=== PATIENT | male | born 1950 | race Caucasian/White ===

== ENCOUNTER → 2018-12-16 07:17 | Outpatient (CLI) | payer MEDICARE, SELFPAY ==
--- NOTE | 2018-12-16 07:44 | CI_ITS ---
Cerebrovascular Exam Indications: 433.10 Occlusion/stenosis of carotid artery without cerebral infarction. IMPRESSIONS 1. The bilateral vertebral arteries are patent with normal antegrade flow. 2. Study suggests 20-49% stenosis involving the right internal carotid artery. 3. Study suggests 50-69% stenosis involving the left internal carotid artery. History: Risk factors: Current tobacco use. Hypertension. Carotid duplex study. Complete study and Doppler flow study including spectral analysis, color and belle scale imaging. Height: Height: 175.3cm. Height: 69in. Weight: Weight: 103.9kg. Weight: 228.5lb. Body mass index: BMI: 33.8kg/m^2. Body surface area: BSA: 2.28m^2. Location: Vascular laboratory. Patient status: Outpatient. Tables: Arterial flow: + +--------+--------+ Location V sys V ed + +--------+--------+ Right CCA - proximal 59.4cm/s 18.2cm/s + +--------+--------+ Right CCA - distal 51.6cm/s 15.7cm/s + +--------+--------+ Right ECA 49.1cm/s -------- + +--------+--------+ Right ICA - proximal 87.4cm/s 31.9cm/s + +--------+--------+ Right ICA - mid 125cm/s 41.9cm/s + +--------+--------+ Right ICA - distal 108cm/s 37cm/s + +--------+--------+ Right vertebral 52.1cm/s -------- + +--------+--------+ Left CCA - proximal 119cm/s 31.4cm/s + +--------+--------+ Left CCA - distal 84.2cm/s 24.5cm/s + +--------+--------+ Left ECA 137cm/s -------- + +--------+--------+ Left ICA - proximal 113cm/s 42.1cm/s + +--------+--------+ Left ICA - mid 140cm/s 47.5cm/s + +--------+--------+ Left ICA - distal 124cm/s 36.3cm/s + +--------+--------+ Left vertebral 51cm/s -------- + +--------+--------+ Velocity ratios: + + + + + + Right, V sys Right, V ed Left, V sys Left, V ed + + + + + + Max ICA/dist CCA 2.42 2.67 1.66 1.94 + + + + + + (Report amended ) Electronically signed by: Cyrus Almazan [id number]
--- NOTE | 2018-12-16 08:00 | CT_ITS ---
EXAM: CT LUNG LOW DOSE WO CONTRAST TECHNIQUE: The exam was performed on a GE Light Speed [address] scanner using 3.0 mGy CTDI. A low dose helical CT CHEST was performed on a multi-detector scanner. All CT scans at this facility use one or more dose reduction techniques, viz.: automated exposure control, ma/kV adjustment per patient size (including targeted exams where dose is matched to indication, i.e. head) or iterative reconstruction technique. The LDCT was performed in a facility that meets the criteria for the screening program. Data regarding this exam was submitted to ACR which is an approved registry. The order for this exam indicates that it came as a result of a lung cancer screening counseling shard decision-making visit that included all the elements required of such a visit including smoking cessation. The radiologist interpreting this exam meets the [facility] criteria for the LDCT lung cancer screening program. The exam is reported using the Lung-RADS classification scale and reported to the ACR registry. NOTE: This study was performed for the specific purposes of lung cancer screening and is not an alternative to diagnostic chest CT. RADIATION DOSE: CTDI vol(CT dose Index-volume) = 2.9mGy DLP (Dose Length Product) = 115.03 mGy-cm COMPARISON: CTA chest 03/25/2016 HISTORY: 1-2 pack per day 52 years . Pain currently smoking. Asymptomatic. FINDINGS: NODULE SURVEY No suspicious lung nodules or masses evident. Benign granulomas a most likely benign findings.... Follow-up in one year would be adequate for screening There are benign calcified granulomas the right lung:.. Note 2 of them measuring up to 3.5 mm size. These are not of concern. Tiny barely evident less than 3 mm nodule periphery the right upper lobe on coronal image 43 axial image 41.- Nonspecific nodule.Lung RADS Category: 2 ...... possibly some early calcification given its density for size. One year follow-up adequate Other also some small old less than 4 mm mm calcified granulomas at the left lung, scattered throughout left lower lobe . There is minimal linear scarring seen at the anterior aspect the lingula accounting for features here. ------ LUNGS Mild centrilobular emphysematous changes No pleural density. No pleural lesions. Airways are upper to slightly thickened centrally and towards infrahilar regions MEDIASTINUM/KOBI Calcified hilar nodes on right. No hilar nor mediastinal mass nor significant adenopathy. Small calcified nodes precarinal region not of concern. Heart normal size but with dense at the right calcification LAD and minimal calcification circumflex and right coronary. Minimal Bilateral gynecomastia noted Osseous structures intact. No lesions Generous developing marginal osteophytes at the lower T-spine projected to the right. . Minimal Bilateral gynecomastia noted. IMPRESSION: 1. No suspicious lung nodule or mass. Mild emphysematous changes. 2. Numerous Small benign calcified granuloma bilaterally. One or 2 tiny nonspecific nodules measure roughly 3 mm. These Not of significant concern and most likely benign. ....... Lung RADS Category: 2...... Follow-up in one year recommended 2. Other findings ... coronary artery calcification/disease RECOMMENDATIONS: 12 monthd LDCT follow-up
== END ==
PROVIDERS: PCP Family Medicine; Visit Provider Family Medicine
DX: Z12.2 Encounter for screening for malignant neoplasm of respiratory organs (principal); Z87.891 Personal history of nicotine dependence; I65.23 Occlusion and stenosis of bilateral carotid arteries
CPT/HCPCS: 93880

== ENCOUNTER → 2020-05-28 07:44 | Outpatient (CLI) | payer MEDICARE, SELFPAY ==
--- NOTE | 2020-05-28 | CA_ITS ---
APPROVED REPORT EXAM: Comprehensive 2D, Doppler, and color-flow Echocardiogram Verse Writer: Daria Owusu CRT Ht: 5 ft 9 in Wt: 230lbs BSA: 2.19 BP: 120/70 mmHg Indications: Shortness of Breath, Diabetes, Obesity, Peripheral Edema, Hypertension/HDD, stent, smoker, TDE due to lung interference and poor windows, stents M-Mode Dimensions RVDd 1.78 cm (0.9-2.6) LVDd 5.27 cm (3.5-5.7) LVDs 3.78 cm (3.5-5.7) IVSd 1.10 cm (0.6-1.1) PWd 0.81 cm (0.6-1.1) EF (Teich) 54.20% FS 28.30% EDV (Teich) 133.60 mL ESV (Teich) 61.20 mL LV Diastology E/A Ratio 0.83 Aortic Valve LVOT Max 171.00 (70-110 cm/s) LVOT VTI 29.65 cm Mitral Valve MV A Velocity 87.00 (40-130 cm/s) Left Ventricle Technically difficult study because of the patient factors and poor acoustic windows. Left atrium is mildly enlarged, left ventricle is normal size, mild concentric left ventricular hypertrophy, visually estimated ejection fraction 55% with no regional wall motion abnormality, grade 1 diastolic dysfunction seen without tissue Doppler evidence of raise left atrial pressure. Right Ventricle Right atrium and right ventricle are normal size and contractility. Aortic Valve Aortic valve is not well visualized, leaflet appears to be thickened, there is increased velocity seen in the left ventricular outflow tract, there is aortic stenosis present which is difficult to quantify with this study, a transesophageal echocardiogram is recommended. Mitral Valve Mitral valve leaflets are minimally thickened, there is mild mitral regurgitation. Tricuspid Valve Tricuspid valve is grossly normal, there is mild tricuspid regurgitation, tricuspid regurgitation jet velocity is inadequate for calculation of the right ventricular systolic pressure. Mild tricuspid valve prolapse. Pulmonic Valve Pulmonic valve is poorly visualized. Great Vessels Aortic root is normal size. Pericardium No significant pericardial effusion noted Other Information Technically limited study due to body habitus, poor endocardial definition. Conclusion 1. Normal left ventricular size, mild concentric left ventricular hypertrophy, visually estimated ejection fraction 55% with no regional wall motion abnormality, grade 1 diastolic dysfunction seen without tissue Doppler evidence of raise left atrial pressure. 2. Thickened and calcified aortic valve, the degree of aortic stenosis cannot be ascertained from this study, a transesophageal echocardiogram is recommended. 3. Mild mitral and tricuspid regurgitation. 4. No significant pericardial effusion noted. Electronically signed by : Wilmer Quinteros, 05/29/2020 06:06:49
--- NOTE | 2020-05-28 07:52 | CT_ITS ---
PROCEDURE: CT LUNG SCREENING CLINICAL INDICATION: H/O NICOTINE DEPENDENCE Current smoker 82.5 pack year smoking history COMPARISON: CT LUNGSCREEN CT lung screening from 12/16/2018 TECHNIQUE: The exam was performed on a GE Light Speed [address] scanner using 2.90 mGy CTDI. A low dose helical CT CHEST was performed on a multi-detector scanner. All CT scans at the facility use one or more dose reduction, viz: automated exposure control, ma/kV adjustment per patient size (including targeted exams where dose is matched to indication, i.e. head), or iterative reconstruction technique. The LDCT was performed in a facility that meets the criteria for the screening program. Data regarding this exam was submitted to ACR which is an approved registry. The order for this exam indicates that it came as a result of a lung cancer screening counseling shard decision-making visit that included all the elements required of such a visit including smoking cessation. The radiologist interpreting this exam meets the CMS criteria for the LDCT lung cancer screening program. The exam is reported using the Lung-RADS classification scale and reported to the ACR registry. NOTE: This study was performed for the specific purposes of lung cancer screening and is not an alternative to diagnostic chest CT. RADIATION DOSE: CTDI vol(CT dose Index-volume) = 2.90mG DLP (Dose Length Product) = 110.72 mGcm Lung Rads Category: FINDINGS: Changes of COPD. Scattered tiny calcified and noncalcified nodules are present as before. No suspicious nodules are evident. There is mild bronchial thickening. OTHER FINDINGS: Coronary artery calcifications IMPRESSION: Lung rads category 2 benign. Recommend annual LD CT Dictated by: Cyrus Almazan MD 06/04/2020 15:01 Cyrus Almazan MD in [place] 06/04/2020 15:01
== END ==
PROVIDERS: PCP Family Medicine; Visit Provider Family Medicine
DX: I35.1 Nonrheumatic aortic (valve) insufficiency (principal); Z87.891 Personal history of nicotine dependence
CPT/HCPCS: 93306

== ENCOUNTER → 2021-01-16 14:21 | Outpatient (CLI) | payer MEDICARE, SELFPAY ==
--- NOTE | 2021-01-16 14:24 | CA_ITS ---
APPROVED REPORT Toll Mechanic: Marisabel Vogel RVT Laterality: Bilateral Study Quality: Good Indications: Carotid stenosis Risk Factors Hypertension: Hyperlipidemia Diabetes Smoking Doppler Spectral Velocity Analysis ECA (R) 115.70/16.30 cm/s ECA (L) 165.70/24.60 cm/s dICA (R) 126.80/38.60 cm/s dICA (L) 94.20/30.80 cm/s Alis (R) 111.40/34.30 cm/s Alis (L) 108.00/32.60 cm/s pICA (R) 86.50/25.70 cm/s pICA (L) 152.50/49.70 cm/s dCCA (R) 39.40/12.00 cm/s dCCA (L) 77.10/12.90 cm/s pCCA (R) 49.70/13.70 cm/s pCCA (L) 93.40/14.60 cm/s Vert (R) 65.10/13.70 cm/s Vert (L) 43.00/12.20 cm/s ICA/CCA 3.22 ICA/CCA 1.98 Findings Study suggests 20-49% stenosis of the right internal cartoid artery. Study suggests 50-69% stenosis of the left internal cartoid artery. Antegrade flow seen bilateral vertebral arteries. Conclusion Study suggests 20-49% stenosis of the right internal cartoid artery. Study suggests 50-69% stenosis of the left internal cartoid artery. Antegrade flow seen bilateral vertebral arteries. Electronically signed by : Cyrus Almazan MD 01/17/2021 16:57:08
== END ==
PROVIDERS: PCP Family Medicine; Visit Provider Family Medicine
DX: I65.23 Occlusion and stenosis of bilateral carotid arteries (principal)
CPT/HCPCS: 93880

== ENCOUNTER 2021-10-23 15:07 | Emergency (ER) | payer MEDICARE, SELFPAY ==
[2021-10-23 15:40] VITALS: BP 169/92; PULSE 102; RESP 20; TEMP 36.9; O2SAT 97; BMI 23.6
[2021-10-23 18:49] VITALS: BP 0/0; PULSE 0; RESP 0; TEMP -17.7; TEMP 0; O2SAT 0
== END 2021-10-23 18:51 | disposition left against medical advice (07) ==
LOC: ER 17:24
PROVIDERS: Emergency Provider Emergency Medicine; PCP Family Medicine
DX: E13.42 Other specified diabetes mellitus with diabetic polyneuropathy (principal); M79.605 Pain in left leg; I10 Essential (primary) hypertension; F17.210 Nicotine dependence, cigarettes, uncomplicated; Z86.711 Personal history of pulmonary embolism
CPT/HCPCS: G0463; 99211

== ENCOUNTER 2021-10-24 11:45 | Emergency (ER) | payer MEDICARE, SELFPAY ==
[2021-10-24 11:49] VITALS: BP 176/98; PULSE 69; RESP 18; TEMP 36.7; O2SAT 95; BMI 33.0
[2021-10-24 12:27] LABS: Basophils # 0.1 K/mm3 (0-0.2); Eosinophils % 0.7 % (0.1-12.0); Hematocrit 47.7 % (42.0-52.0); Hemoglobin 15.4 g/dL (14.1-18.0); Lymphocytes # 1.5 K/mm3 (0.7-4.5); Lymphocytes % 28.9 % (10-50); Mean Corpuscular HGB Conc 32.4 g/dL (31.8-35.4); Mean Corpuscular Volume 98.9 fl (80-94); Mean Platelet Volume 9.1 fl (7.4-10.4); Monocytes # 0.4 K/mm3 (0.1-1.0); Monocytes % 6.6 % (1.7-9.3); Neutrophils # 3.4 K/mm3 (1.8-7.8); Neutrophils % 62.6 % (37.0-80.0); Platelet Count 204 K/mm3 (142-424); Red Blood Count 4.83 M/mm3 (4.60-6.20); Red Cell Distribution Width 13.6 % (11.5-17.5); White Blood Count 5.3 K/mm3 (4.8-10.8)
[2021-10-24 12:31] LABS: Sodium 136 mmol/L (136-145)
[2021-10-24 12:33] LABS: Alanine Aminotransferase 38 U/L (12-78); Albumin Level 4.1 g/dl (3.5-5.0); Albumin/Globulin Ratio 1.4 (1.1-1.8); Alkaline Phosphatase 85 U/L (38-126); Anion Gap 9.2 mEq/L (5-15); Aspartate Amino Transferase 35 U/L (17-59); Bilirubin,Total 0.4 mg/dl (0.2-1.3); Blood Urea Nitrogen 14 mg/dl (9-20); Calcium 8.9 mg/dl (8.4-10.2); Carbon Dioxide 31 mmol/L (22.0-30.0); Chloride 100 mmol/L (98-107); Creatinine Clearance Estimated 95 mL/min (50-200); Estimated Glomerular Filt Rate 95 ml/min (>60); GFR (African American) 115 ML/MIN (>60); Globulin 2.9 g/dL (1.3-3.2); Glucose 211 mg/dl (74-100); Potassium 4.2 mmoL/L (3.5-5.1)
[2021-10-24 12:34] LABS: INR 2.25 (0.9-1.1); Prothrombin Time 23.9 seconds (10.1-12.5)
[2021-10-24 13:00] VITALS: BP 132/65; PULSE 92; RESP 16; O2SAT 94
--- NOTE | 2021-10-24 13:18 | HMH.EDGENADL ---
ED Disposition Clinical Impression: Peripheral edema Diabetic neuropathy Qualifiers: Diabetes mellitus type: other specified (including RENÉE) Diabetes mellitus complication detail: diabetic polyneuropathy Qualified Code(s): E13.42 - Other specified diabetes mellitus with diabetic polyneuropathy Disposition: Home, Self-Care Condition on Discharge: Good Instructions: DI for Diabetic Neuropathy, DI for Peripheral Edema -- Bilateral Additional Instructions: Take Lasix as prescribed. Elevate your legs when possible. Continue taking gabapentin. Follow-up with Dr. Dotson in the office, you have been given an appointment sooner than your previously scheduled follow-up if you wish to be seen sooner than scheduled. Prescriptions: Furosemide [Lasix 20mg tab] 20 mg PO DAILY #7 tab Transmission Status: Received by [facility] Referrals: Juvenal Dotson MD [Primary Care Provider] - - Critical Care Critical Care Time: No Attestation: On 10/24/21, the high probability of a clinically significant, sudden or life threatening deterioration of the following system(s) required my full and direct attention, intervention and personal management. The time I documented below is in addition to time spent performing reported procedures but includes the following listed in this critical care notation. Medical Decision Making - Joe Inquiry Pt receiving controlled substance: No Vital Signs: 10/24/21 11:49 10/24/21 13:00 10/24/21 13:30 Temperature 98.0 F Temperature Source Oral Pulse Rate 92 H 98 H Pulse Rate [Right Radial] 69 Respiratory Rate 18 16 Blood Pressure 132/65 Blood Pressure [Right Arm] 176/98 H Blood Pressure Mean 87 Blood Pressure Mean [Right Arm] 124 Blood Pressure Source [Right Arm] Automatic Cuff Blood Pressure Position [Right Arm] Sitting 02 Sat by Pulse Oximetry 95 94 L 95 Oxygen Delivery Method Room Air 10/24/21 14:44 Temperature Temperature Source Pulse Rate 90 Pulse Rate [Right Radial] Respiratory Rate 16 Blood Pressure 151/79 H Blood Pressure [Right Arm] Blood Pressure Mean 125 Blood Pressure Mean [Right Arm] Blood Pressure Source [Right Arm] Blood Pressure Position [Right Arm] 02 Sat by Pulse Oximetry 95 Oxygen Delivery Method - Lab Data Lab Results 10/24/21 12:14: WBC 5.3, RBC 4.83, Hgb 15.4, Hct 47.7, MCV 98.9 H, MCH 32.0 H, MCHC 32.4, RDW 13.6, Plt Count 204, MPV 9.1, Neut % (Auto) 62.6, Lymph % (Auto) 28.9, [place] % (Auto) 6.6, Eos % (Auto) 0.7, Baso % (Auto) 1.0, Neut # (Auto) 3.4, Lymph # (Auto) 1.5, [place] # (Auto) 0.4, Eos # (Auto) 0.0, Baso # (Auto) 0.1 10/24/21 12:14: PT 23.9 H, INR 2.25 H 10/24/21 12:14: Sodium 136, Potassium 4.2, Chloride 100, Carbon Dioxide 31 H, Anion Gap 9.2, BUN 14, Creatinine 0.80, Estimated Creat Clear 95, Estimated GFR 95, Est GFR ( Amer) 115, Glucose 211 H, Calcium 8.9, Total Bilirubin 0.4, AST 35, ALT 38, Alkaline Phosphatase 85, Total Protein 7.0, Albumin 4.1, Globulin 2.9, Albumin/Globulin Ratio 1.4 Result diagrams: 10/24/21 12:14 10/24/21 12:14 Orders (Tests/Meds): ED MEDICATIONS Discontinued Medications Generic Name Dose Route Start Last Admin Trade Name Freq PRN Reason Stop Dose Admin Furosemide 20 mg 10/24/21 14:39 10/24/21 14:41 Furosemide 40mg/4ml Vial IV 10/24/21 14:40 20 mg ONCE ONE Administration - US Data US Images: Lower Extremity Findings Narrative: As per [facility] procedure, venous doppler report received from vascular neurologist: Negative for DVT bilaterally - Physician Consults Physician Consulted: Mauri Time: 14:30 Reason -: Pt condition Comment/Response: Start Lasix 20 mg/day. Office will call to get him a sooner appointment. However, patient states that he cannot see Dr. Dotson until after June 13 because he does not get a Social Security check and movement. I advised him to arrange the follow-up appointment with Dr. Dotson's office himself.
--- NOTE | 2021-10-24 13:26 | CA_ITS ---
FINAL REPORT CLINICAL HISTORY: .EDEMA MICHELLE, LT FOOT PAIN,HX DVT,HX PE'S,PT ON COUMADIN FINDINGS: Color Doppler, duplex Doppler and compression sonography of the bilateral lower extremities was performed. There is no evidence of deep venous thrombosis from the level of the groin to the calf. The deep veins are patent and compressible. IMPRESSION: No evidence of deep venous thrombosis bilateral lower extremities. Reviewed, Interpreted and Dictated by Fran Cotton III, MD Transcribed by Lela Suresh Authenticated by Fran Cotton III, MD on 10/24/2021 03:21:16 PM [facility]
--- NOTE | 2021-10-24 13:27 | PC.NURSE ---
Called echo and let them know about the doppler orders. Latanya advised they would be down as soon as they were available. They had multiple patient's upstairs at the moment.
--- NOTE | 2021-10-24 13:28 | PC.NURSE ---
Notified pt and updated him on POC
[2021-10-24 13:30] VITALS: PULSE 98; O2SAT 95
--- NOTE | 2021-10-24 13:48 | PC.NURSE ---
vascular at bedside
[2021-10-24 14:44] VITALS: BP 151/79; PULSE 90; RESP 16; O2SAT 95
[2021-10-24 15:31] VITALS: BP 142/70; PULSE 70; RESP 16; TEMP 36.9; O2SAT 98
== END 2021-10-24 15:32 | disposition home or self-care (01) ==
PROVIDERS: Emergency Provider Emergency Medicine; PCP Family Medicine
DX: E13.42 Other specified diabetes mellitus with diabetic polyneuropathy (principal); M79.671 Pain in right foot; M79.672 Pain in left foot; Z86.718 Personal history of other venous thrombosis and embolism; Z79.01 Long term (current) use of anticoagulants; I10 Essential (primary) hypertension; F17.210 Nicotine dependence, cigarettes, uncomplicated
CPT/HCPCS: 80053; 85025; 85610; 93970; 96374; 99283

== ENCOUNTER 2021-12-08 12:18 | Emergency (ER) | payer MEDICARE, SELFPAY ==
[2021-12-08 12:19] VITALS: BP 158/94; PULSE 113; RESP 18; TEMP 36.6; O2SAT 94; BMI 33.0
[2021-12-08 12:29] VITALS: BP 158/94; PULSE 115; O2SAT 94
[2021-12-08 12:30] VITALS: BP 153/109; PULSE 110; O2SAT 92
[2021-12-08 13:00] VITALS: BP 135/92; PULSE 110; O2SAT 91
--- NOTE | 2021-12-08 13:00 | XR_ITS ---
FINAL REPORT CLINICAL HISTORY: RLL pain-- also having a doppler FINDINGS: There is no acute fracture or dislocation. There are degenerative changes at the right knee and right ankle. There is no soft tissue abnormality. IMPRESSION: No acute fracture Reviewed, Interpreted and Dictated by Fran Cotton III, MD Transcribed by OLMAN Holden Authenticated by Fran Cotton III, MD on 12/08/2021 02:09:32 PM [facility]
--- NOTE | 2021-12-08 13:04 | HMH.EDEXTP ---
ED Disposition Clinical Impression: Venous insufficiency of both lower extremities Disposition: Home, Self-Care Condition on Discharge: Good Instructions: Chronic Venous Insufficiency Additional Instructions: Please keep your appointment with your Primary Care Physician in 2-3 days. Please elevate your legs at night. May also buy compression stockings to help with fluid in your lower extremities. Please also continue your Lasix/Furosemide as prescribed. Please return for worsening pain, chest pain, difficulty breathing, inability to walk or any other concerning symptoms. Please monitor your sugar levels closely. Prescriptions: Rob.stocking,Knee,Reg,Xlrg [T.e.d. Anti-Embolism Stocking] 1 each MC DAILY #2 each Transmission Status: Received by [facility] Referrals: Juvenal Dotson MD [Primary Care Provider] - Time of Disposition: 14:55 - Critical Care Critical Care Time: No Attestation: On 12/08/21, the high probability of a clinically significant, sudden or life threatening deterioration of the following system(s) required my full and direct attention, intervention and personal management. The time I documented below is in addition to time spent performing reported procedures but includes the following listed in this critical care notation. Medical Decision Making - Medical Records Medical records reviewed: Yes: I reviewed the patient's medical records. - Joe Inquiry Pt receiving controlled substance: No Vital Signs: 12/08/21 12:19 12/08/21 12:29 12/08/21 12:30 Temperature 97.8 F Temperature Source Oral Pulse Rate 115 H 110 H Pulse Rate [Left Radial] 113 H Respiratory Rate 18 Blood Pressure 158/94 H 153/109 H Blood Pressure [Right Arm] 158/94 H Blood Pressure Mean 121 124 Blood Pressure Mean [Right Arm] 115 Blood Pressure Source [Right Arm] Automatic Cuff Blood Pressure Position [Right Arm] Sitting 02 Sat by Pulse Oximetry 94 L 94 L 92 L Oxygen Delivery Method Room Air 12/08/21 13:00 12/08/21 14:58 Temperature 97.8 F Temperature Source Oral Pulse Rate 110 H 100 H Pulse Rate [Left Radial] Respiratory Rate 18 Blood Pressure 135/92 H 121/73 Blood Pressure [Right Arm] Blood Pressure Mean 106 Blood Pressure Mean [Right Arm] Blood Pressure Source [Right Arm] Blood Pressure Position [Right Arm] 02 Sat by Pulse Oximetry 91 L Oxygen Delivery Method Room Air - Lab Data Lab results reviewed: Yes: I reviewed the patient's lab results. Lab Results 12/08/21 13:10: WBC 5.8, RBC 5.18, Hgb 16.5, Hct 51.0, MCV 98.6 H, MCH 31.8 H, MCHC 32.3, RDW 13.1, Plt Count 230, MPV 10.1, Neut % (Auto) 62.3, Lymph % (Auto) 28.1, [place] % (Auto) 7.0, Eos % (Auto) 0.8, Baso % (Auto) 1.8, Neut # (Auto) 3.6, Lymph # (Auto) 1.6, [place] # (Auto) 0.4, Eos # (Auto) 0.1, Baso # (Auto) 0.1 12/08/21 13:10: PT 29.7 H, INR 2.84 H, APTT 44.6 H 12/08/21 13:10: Sodium 135 L, Potassium 4.4, Chloride 97 L, Carbon Dioxide 31 H, Anion Gap 11.4, BUN 17, Creatinine 0.90, Estimated Creat Clear 95, Estimated GFR 83, Est GFR ( Amer) 100, Glucose 149 H, Calcium 8.8, Total Bilirubin 0.6, AST 35, ALT 33, Alkaline Phosphatase 99, C-Reactive Protein 11.2 H, Total Protein 8.2, Albumin 4.7, Globulin 3.5 H, Albumin/Globulin Ratio 1.3 12/08/21 13:10: ESR 14 Result diagrams: 12/08/21 13:10 12/08/21 13:10 Medical Decision Narrative: Mr. Jack is a 71 yo male w/ uncontrolled T2DM who presents to the ED for worsening RLE pain and swelling. Patient is afebrile and hemodynamically stable on arrival. Physical exam patient has eyrhtema to BLE and swelling worse on the RLE. Patient has no obvious signs of acute infection. No crepitus. Differentials to consider but not limited to include: Venous insufficiency, DVT, Low suspicion for PE given current clinical picture and symptoms, osteomyelitis, low suspicion for necrotizing infection given physical exam will not investigate further. XR of the tib fib shows no bon
--- NOTE | 2021-12-08 13:24 | CA_ITS ---
FINAL REPORT TECHNIQUE: Color Doppler, duplex Doppler and compression sonography of the right lower extremity venous system was performed. CLINICAL HISTORY: right leg pain, edema, r/o DVT. History of DVT and PE. Smoker, DM, HTN, obesity, redness distal RLE. Denies trauma. States pain and edema began 1 week ago. FINDINGS: There is no evidence of deep venous thrombosis from the level of the groin to the calf. The veins are patent and compressible. IMPRESSION: No evidence of deep venous thrombosis right lower extremity. Reviewed, Interpreted and Dictated by Fran Cotton III, MD Transcribed by Mariola Sterling Authenticated by Fran Cotton III, MD on 12/08/2021 02:47:21 PM [facility]
--- NOTE | 2021-12-08 13:25 | PC.NURSE ---
notified vascular lab of doppler order
[2021-12-08 13:50] LABS: Activated Partial Thrombo Time 44.6 seconds (22.8-30.6); INR 2.84 (0.9-1.1); Prothrombin Time 29.7 seconds (10.1-12.5)
--- NOTE | 2021-12-08 13:52 | PC.NURSE ---
CV lab staff at for doppler.
[2021-12-08 13:53] LABS: Chloride 97 mmol/L (98-107); Potassium 4.4 mmoL/L (3.5-5.1); Sodium 135 mmol/L (136-145)
[2021-12-08 13:55] LABS: Blood Urea Nitrogen 17 mg/dl (9-20); Creatinine Clearance Estimated 95 mL/min (50-200); Estimated Glomerular Filt Rate 83 ml/min (>60); GFR (African American) 100 ML/MIN (>60)
[2021-12-08 13:56] LABS: Alanine Aminotransferase 33 U/L (12-78); Albumin Level 4.7 g/dl (3.5-5.0); Albumin/Globulin Ratio 1.3 (1.1-1.8); Alkaline Phosphatase 99 U/L (38-126); Anion Gap 11.4 mEq/L (5-15); Aspartate Amino Transferase 35 U/L (17-59); Bilirubin,Total 0.6 mg/dl (0.2-1.3); Calcium 8.8 mg/dl (8.4-10.2); Carbon Dioxide 31 mmol/L (22.0-30.0); Globulin 3.5 g/dL (1.3-3.2); Glucose 149 mg/dl (74-100); Total Protein,Serum 8.2 g/dl (6.3-8.2)
--- NOTE | 2021-12-08 13:58 | PC.NURSE ---
CV lab staff reported verbal results to ER MD at this time- negative for DVT
[2021-12-08 14:01] LABS: C-Reactive Protein 11.2 mg/L (0-4)
[2021-12-08 14:12] LABS: Basophils # 0.1 K/mm3 (0-0.2); Basophils % 1.8 % (0.1-2.0); Eosinophils # 0.1 K/mm3 (0.0-0.4); Eosinophils % 0.8 % (0.1-12.0); Hemoglobin 16.5 g/dL (14.1-18.0); Lymphocytes # 1.6 K/mm3 (0.7-4.5); Lymphocytes % 28.1 % (10-50); Mean Corpuscular HGB Conc 32.3 g/dL (31.8-35.4); Mean Corpuscular Hemoglobin 31.8 pg (27.0-31.2); Mean Corpuscular Volume 98.6 fl (80-94); Mean Platelet Volume 10.1 fl (7.4-10.4); Monocytes # 0.4 K/mm3 (0.1-1.0); Neutrophils # 3.6 K/mm3 (1.8-7.8); Neutrophils % 62.3 % (37.0-80.0); Platelet Count 230 K/mm3 (142-424); Red Blood Count 5.18 M/mm3 (4.60-6.20); Red Cell Distribution Width 13.1 % (11.5-17.5); White Blood Count 5.8 K/mm3 (4.8-10.8)
[2021-12-08 14:38] LABS: Erythrocyte Sedimentation Rate 14 mm/hr (0-20)
[2021-12-08 14:58] VITALS: BP 121/73; PULSE 100; RESP 18; TEMP 36.6; O2SAT 93
== END 2021-12-08 14:58 | disposition home or self-care (01) ==
PROVIDERS: Emergency Provider Student in an Organized Health Care Education/Training Program; PCP Family Medicine
DX: I87.2 Venous insufficiency (chronic) (peripheral) (principal); E11.9 Type 2 diabetes mellitus without complications; I10 Essential (primary) hypertension; F17.210 Nicotine dependence, cigarettes, uncomplicated; Z79.899 Other long term (current) drug therapy; Z86.718 Personal history of other venous thrombosis and embolism
CPT/HCPCS: 73590; 80053; 85025; 85610; 85651; 85730; 86140; 93971; 99284

== ENCOUNTER → 2022-04-22 09:57 | Outpatient (CLI) | payer MEDICARE, SELFPAY ==
[2022-04-22 10:42] LABS: Basophils # 0.1 K/mm3 (0-0.2); Basophils % 0.9 % (0.1-2.0); Eosinophils # 0.1 K/mm3 (0.0-0.4); Eosinophils % 0.9 % (0.1-12.0); Hematocrit 49.4 % (42.0-52.0); Hemoglobin 15.7 g/dL (14.1-18.0); Lymphocytes # 1.7 K/mm3 (0.7-4.5); Lymphocytes % 24.1 % (10-50); Mean Corpuscular HGB Conc 31.8 g/dL (31.8-35.4); Mean Corpuscular Hemoglobin 31.8 pg (27.0-31.2); Mean Corpuscular Volume 99.7 fl (80-94); Mean Platelet Volume 9.5 fl (7.4-10.4); Monocytes # 0.5 K/mm3 (0.1-1.0); Monocytes % 6.7 % (1.7-9.3); Neutrophils # 4.6 K/mm3 (1.8-7.8); Neutrophils % 67.4 % (37.0-80.0); Platelet Count 232 K/mm3 (142-424); Red Blood Count 4.96 M/mm3 (4.60-6.20); Red Cell Distribution Width 13.5 % (11.5-17.5); White Blood Count 6.9 K/mm3 (4.8-10.8)
[2022-04-22 11:03] LABS: Alanine Aminotransferase 31 U/L (12-78); Alkaline Phosphatase 97 U/L (38-126); Anion Gap 11.3 mEq/L (5-15); Aspartate Amino Transferase 27 U/L (17-59); Bilirubin,Unconjugated 0.4 mg/dL (0.0-1.1); Blood Urea Nitrogen 12 mg/dl (9-20); Calcium 9.2 mg/dl (8.4-10.2); Carbon Dioxide 30 mmol/L (22.0-30.0); Chloride 101 mmol/L (98-107); Chol/HDL Ratio 4.2 (1-3.5); Cholesterol 208 mg/dl (140-200); Estimated Glomerular Filt Rate 94 ml/min (>60); GFR (African American) 114 ML/MIN (>60); Glucose 150 mg/dl (74-100); HDL Cholesterol 49 mg/dl (40-60); Magnesium 1.6 mg/dl (1.6-2.3); Potassium 4.3 mmoL/L (3.5-5.1); Sodium 138 mmol/L (136-145); Total Protein,Serum 6.9 g/dl (6.3-8.2); Triglycerides 188 mg/dl (30-150); VLDL Cholesterol 38 mg/dL (0-40)
[2022-04-22 11:06] LABS: Bilirubin,Total < 0.1 mg/dl (0.2-1.3)
[2022-04-22 11:13] LABS: Direct LDL Cholesterol 118.76 mg/dL (100-129)
[2022-04-22 11:14] LABS: Bilirubin,Direct 0.1 mg/dl (0.0-0.4); Bilirubin,Indirect 0.2 mg/dL (0.0-0.9)
[2022-04-22 11:19] LABS: Free T4 (Free Thyroxine) 1.04 ng/dl (0.78-2.19)
[2022-04-22 11:33] LABS: Thyroid Stimulating Hormone 1.83 uIU/mL (0.465-4.68)
== END ==
PROVIDERS: PCP Family Medicine; Visit Provider Nurse Practitioner
DX: I10 Essential (primary) hypertension (principal); I26.99 Other pulmonary embolism without acute cor pulmonale; I87.2 Venous insufficiency (chronic) (peripheral); L81.9 Disorder of pigmentation, unspecified; M79.672 Pain in left foot; R00.0 Tachycardia, unspecified; R60.9 Edema, unspecified; R94.31 Abnormal electrocardiogram [ECG] [EKG]; Z72.0 Tobacco use; Z79.01 Long term (current) use of anticoagulants; Z86.718 Personal history of other venous thrombosis and embolism
CPT/HCPCS: 36415; 80048; 80061; 80076; 83735; 84439; 84443; 85025

== ENCOUNTER → 2022-04-29 06:53 | Outpatient (CLI) | payer MEDICARE, SELFPAY ==
--- NOTE | 2022-04-29 06:53 | CA_ITS ---
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 ON LAST ECHO VERY TDS-LIMITED WINDOWS,AO VALVE NOT SEEN WELL 2D Dimensions Left Atrium 3.03 cm M: 3.0 - 4.0 LVOT 2.28 cm (M/F) 1.5-2.5 M-Mode Dimensions RVDd 2.51 cm (0.9-2.6) LA Diam 2.76 cm (1.9-4.0) LVDd 4.61 cm (3.5-5.7) Ao Diam 3.80 cm (2.0-3.7) LVDs 2.87 cm (3.5-5.7) IVSd 0.46 cm (0.6-1.1) PWd 0.82 cm (0.6-1.1) EF (Teich) 67.90% FS 37.70% EDV (Teich) 97.80 mL ESV (Teich) 31.40 mL LV Diastology E Decel Time 300.00 (160-240 msec) E/A Ratio 0.8 MED E' 5.10 (< 7 cm/sec) E'/MED E' Ratio 16.59 (>14) LAT E' 5.50 (<10 cm/sec) E/LAT E' Ratio 15.38 (>14) Aortic Valve LVOT Max 88.00 (70-110 cm/s) LVOT VTI 23.19 cm AoV Peak Patricio. 201.00 (50-130 cm/s) AO Peak GR. 21.50 mmHg AO Mean GR. 14.10 (<5 mmHg) AO VTI 46.15 (18-25 cm) LES (VTI) 2.05 (2.5-4.5 cm2) Mitral Valve MV E Max Patricio. 85.00 (40-130 cm/s) MV A Velocity 109.00 (40-130 cm/s) E/A Ratio 0.78 MV Decel. Time 300.00 (160-240 ms) MV PHT 88.00 ms Pulmonary Valve PV Peak Velocity 92.00 (50-150 cm/s) Tricuspid Valve TR P. Velocity 292.00 cm/s RAP Estimate 10.00 mmHg RVSP 44.00 mmHg Left Ventricle Technically difficult study because of the patient factors and poor acoustic windows, aortic valve is not well visualized. Left atrium is mildly enlarged, left ventricle is normal size mild concentric left ventricular hypertrophy, estimated ejection fraction 55% with no regional wall motion abnormality, grade 1 diastolic dysfunction seen without tissue Doppler evidence of raise left atrial pressure. Right Ventricle Right atrium and right ventricle are mildly enlarged with normal contractility. Aortic Valve Aortic valve leaflets are not well visualized, there is calcification and restriction in the leaflet mobility, the maximum aortic outflow velocity recorded study 3.5 m/s resulting in mean gradient of 34 mmHg, valve area is 1.1 cm represents moderate aortic stenosis, there is no significant aortic insufficiency seen. Mitral Valve Mitral valve leaflets are minimally thickened, there is mild mitral regurgitation. Tricuspid Valve Tricuspid valve grossly normal, there is mild tricuspid regurgitation, tricuspid regurgitation jet velocity is inadequate for calculation of the right ventricular systolic pressure. Pulmonic Valve Pulmonic valve is poorly visualized. Great Vessels Aortic root is normal size. Inferior vena cava is poorly visualized. Pericardium No significant pericardial effusion noted. Conclusion 1. Technically difficult study as described above. Aortic valve is not well visualized. Mildly enlarged left atrium, normal left ventricular size mild concentric left ventricular hypertrophy, estimated ejection fraction 55% with no regional wall motion abnormality, grade 1 diastolic dysfunction seen without tissue Doppler evidence of raise left atrial pressure. 2. Thickened and calcified aortic valve leaflets are not well visualized, mean gradient across aortic valve is 24 mmHg, valve area is 1.1 cm represents moderate aortic stenosis, there is no significant aortic insufficiency. 3. Mild mitral and tricuspid regurgitation. 4. No significant pericardial effusion noted 5. Inferior vena cava is poorly visualized. Electronically signed by : Wilmer Quinteros MD 04/30/2022 06:12:43
--- NOTE | 2022-04-29 06:56 | NM_ITS ---
APPROVED REPORT Exam: Nuclear Stress Test Indication: SOB, Abnormal EKG, HTN, DM, Tobacco use, CAD, Hx of [place] Patient Location: Outpatient Stress Tech: Yessica Armas PA Tech:Barbara Venegas, ARRT, RT (R)(N) Ht: 5 ft 9 in Wt: 208 lbs HR: 81 bpm BP: 132/80 mmHg BSA: 2.10 m2 TID: 1.22 BMI: 30.7 History: SOB, Abnormal EKG, HTN, DM, Tobacco use, CAD, Hx of [place] Procedure: Patient received a 0.4 mg of intravenous Lexiscan, resting heart rate 81 bpm, resting blood pressure 132/80 mmHg, with Lexiscan maximum heart rate achived was 107 bpm which is Less than 85 % of the maximum predicted heart rate and blood pressure was 143/69 mmHg. With Lexiscan, patient denied any complaint of chest pain. Electrocardiogram Resting electrocardiogram shows sinus rhythm, with Lexiscan there is less than 1.[address] segment depression noted from the baseline EKG. The EKG portion of the Lexiscan is nondiagnostic. Cardiac Stress and Resting SPECT Images: Cardiac Stress and Resting SPECT images were obtained using technetium 99m Myoview 32.4 mCi stress and 10.30 mCi at rest. Gated SPECT for analysis of segmental wall motion and calculation of the ejection fraction also done. Prone images were also obtained. Cardiac stress and resting SPECT images show uniform myocardial activity without segmental perfusion abnormality, computer derived ejection fraction is 63% with no regional wall motion abnormality, right ventricle is normal size and contractility. Conclusion: 1. The EKG portion of the Lexiscan is nondiagnostic. 2. No scintigraphic evidence of reversible ischemia seen, computer derived ejection fraction 63% with no regional wall motion abnormality, right ventricle is normal size and contractility. 3. Normal Lexiscan Myoview study. Electronically signed by : Wilmer Quinteros MD 04/30/2022 05:44:04
--- NOTE | 2022-04-29 08:02 | US_ITS ---
FINAL REPORT CLINICAL HISTORY: left foot pain/discoloration, current smoker, HTN, DM, hyperlipidemia, hx [place], CAD, bilateral claudication, bilateral ulcers feet/heel. FINDINGS: ANKLE-BRACHIAL PRESSURE INDICES Pressure indices are as follows: RIGHT LOWER EXTREMITY: Ankle-brachial pressure index: 1.1 Comments: Normal LEFT LOWER EXTREMITY: Ankle-brachial pressure index: 1.1 Comments: Normal CONCLUSION: No evidence of significant obstructive peripheral vascular disease of the lower extremities Reviewed, Interpreted and Dictated by Fran Cotton III, MD Transcribed by Lela Suresh Authenticated and [facility]
--- NOTE | 2022-04-29 08:26 | HMH.ITSHM ---
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 []PREDNISONE LISINOPRIL WARFARIN METFORMIN
--- NOTE | 2022-04-29 09:13 | CA_ITS ---
APPROVED REPORT Exam: Pharmacologic Technologist: Yessica Troy, Ht: 5 ft 9 in Wt: 208 lbs BSA: 2.10 m2 HR: 78 bpm BP: 132/80 mmHg Medical History Medications: Lisinopril,,,,, Warfarin,,,,, Metformin,,,,, Prednisone,,,,, Stress Test Details Test: LEXISCAN Reason for pharmacologic stress test: physical limitation. HR Resting HR: 81 bpm Max Heart Rate (APMHR): 146.602654 bpm Max HR Achieved: 107 bpm Target HR (85% APMHR): 124.293170 bpm % of APMHR: 73.29 Recovery HR: 93 bpm BP Resting BP: 132/80 mmHg Max BP: 143/69 mmHg Recovery BP: 143.0/69.0 mmHg ECG Resting ECG: NSR, LPFB, ST-T abns in leads III, aVF Clinical Exercise duration: 04:00 min Highest Stage Achieved: Exercise capacity: 1.0 METs Stress ECG Conclusion Symptoms: None Arrhythias/Ectopy: Occ PVC. Rare PAC ST-T Changes: No significant changes Conclusion: Non-diagnostic Lexiscan stress. Myoview images reported separately. Test Summary REST . . . . . . . Resting REST 05:17 . . 81 . 132/ 80 . . Stage 1 . . . . . . . Myoview Injected Stage 1 01:00 . . 100 . . . . Stage 2 01:00 . . 101 . 109/ 61 . . Stage 3 01:00 . . 99 . 121/ 67 . . Stage 4 01:00 . . 104 . 116/ 65 . Stop exercise at 04:00 RECOVERY 01:00 . . 101 . . . . RECOVERY 02:00 . . 99 . . . . RECOVERY 03:00 . . 102 . 113/ 67 . . RECOVERY 04:00 . . 93 . 113/ 67 . . RECOVERY 04:44 . . 97 . 143/ 69 . . Electronically signed by : Wilmer Quinteros MD 04/30/2022 05:40:51
== END ==
PROVIDERS: PCP Family Medicine; Visit Provider Nurse Practitioner
DX: I10 Essential (primary) hypertension (principal); I26.99 Other pulmonary embolism without acute cor pulmonale; I87.2 Venous insufficiency (chronic) (peripheral); L81.9 Disorder of pigmentation, unspecified; M79.672 Pain in left foot; R00.0 Tachycardia, unspecified; R60.9 Edema, unspecified; R94.31 Abnormal electrocardiogram [ECG] [EKG]; Z72.0 Tobacco use; Z79.01 Long term (current) use of anticoagulants; Z86.718 Personal history of other venous thrombosis and embolism; Z51.81 Encounter for therapeutic drug level monitoring; I70.213 Atherosclerosis of native arteries of extremities with intermittent claudication, bilateral legs
CPT/HCPCS: 78452; 93017; 93306; 93923; A9502; J2785

== ENCOUNTER 2025-05-30 13:42 | Outpatient (CLI) | payer MEDICARE, SELFPAY ==
--- OUTSIDE RECORDS SUMMARY | 2025-05-08 05:02 | XMS_ITS ---
Author Organization [facility] Address [address] [place] [id number] Care Team Providers Care Pipeline Controller Name Role Phone Jennifer Dotsno Primary Care Provider REASON FOR VISIT due LDCT Problems Problem Type SNOMED Code ICD Code Onset Dates Problem Status W/U Status Risk Notes Problem Cigarette smoker (64152337) Cigarette smoker (F17.210) Active confirmed Encounters Encounter Location Date Provider Diagnosis [facility] [address] [place] [id number] 05/08/2025 Jennifer Dotson Encounter for screening for lung cancer Z12.2 and Cigarette smoker F17.210 Assessments Encounter Date Diagnosis (ICD Code) Assessment Notes Treatment Notes Treatment Clinical Notes Section Notes 05/08/2025 Encounter for screening for lung cancer (ICD-10 - Z12.2) 05/08/2025 Cigarette smoker (ICD-10 - F17.210) Plan Of Treatment Pending Test Test Name Order Date CT Scan : Chest, low dose 05/08/2025 Progress Notes * GUEROChad HOGUEDOB:1950 ([age] yo M)Acc No.[id number]:05/08/2025 Patient: Chad CARRASCO :1950 A ge:75 Y S ex:Male Address:[address] , [address] , [place], [id number] Subjective: * Chief Complaints: * d ue LDCT * Medical History: * Surgical History: * Hospitalization/Major Diagno stic Procedure: * Medications: Objective: * Vitals: * Physical Examination: Assessment: * Assessment: 1. E ncounter for screening for lung cancer - Z12.2 (Primary) 2 . C igarette smoker - F17.210 Plan: * Treatment: 2.?Cigarette smoker?Imaging: CT Scan : Chest, low dose* Amena Chery 05/22/2025 11:3 1:19 AM EDT >sent to [facility] for referral to [facility] * Procedure Codes: * true * Date: Generated for Mariela mata/Dru/Florindaitting on: 0 05/30/2025 02:06 PM EDT
--- NOTE | 2025-05-30 13:44 | CT_ITS ---
FINAL REPORT TECHNIQUE: Thin section axial images were obtained from the lung apices to the upper abdomen by computed tomography. Reformatted images were obtained and reviewed. This study was performed with techniques to keep radiation doses al low as reasonably achievable (ALARA). Individualized dose reduction techniques using automated exposure control or adjustment of mA and/or kV according to the patient's size were employed. CLINICAL HISTORY: SCREENING. 2PPD FOR 59YEARS. COPD COMPARISON: Report from LDCT 05/28/2020 FINDINGS: CHEST CT LOW DOSE 75-year-old male, current smoker, [id number] history. CTDI vol (mGy): 2.90 DLP (mGy-cm): 1-4.0 to There is no axillary adenopathy. There is no mediastinal or hilar mass or adenopathy. The heart is normal in size. Moderate coronary artery calcifications are present. There is no pericardial or pleural effusion. Lung window images demonstrate 2 to 3 mm nodules in the right lower lobe, 1 on image #53 of series 4, the second on image #64 of series 4. No other focal nodules are identified. Limited images of the upper abdomen are unremarkable. IMPRESSION: Lung-RADS category 2S, the S designation for coronary artery calcifications. Recommend 12 month follow up low dose chest CT. Reviewed, Interpreted and Dictated by Terrence Cheung MD Transcribed by Earnestine Villeda Authenticated and [facility]
== END 2025-05-30 23:59 | disposition home or self-care (01) ==
LOC: RAD 13:43
PROVIDERS: PCP Family Medicine; Visit Provider Family Medicine
DX: I25.10 Atherosclerotic heart disease of native coronary artery without angina pectoris (principal); J44.9 Chronic obstructive pulmonary disease, unspecified; R91.8 Other nonspecific abnormal finding of lung field; Z87.891 Personal history of nicotine dependence; Z12.2 Encounter for screening for malignant neoplasm of respiratory organs
CPT/HCPCS: 71271